=== PATIENT | male | born 1945 | race American Indian/Alaskan Native ===

== ENCOUNTER 2017-02-28 06:42 | Day surgery (SDC) | payer MEDICARE ==
[2017-02-22 08:25] VITALS: BMI 32.5
[2017-02-28] MEDS ORDERED: Midazolam 2 MG/2 ML VIAL ONE (08:25)
[2017-02-28] MEDS ORDERED: Propofol 10 mg/ml Inj (20 ML) ONE (08:26)
[2017-02-28] MEDS ORDERED: Lactated Ringer's 500 ML IV ONE (09:15)
[2017-02-28 09:50] VITALS: TEMP 97.3
[2017-02-28 10:01] VITALS: O2SAT 100
[2017-02-28 10:31] VITALS: BP 135/75; PULSE 80; RESP 15
== END 2017-02-28 10:39 | disposition home or self-care (01) ==
LOC: C.ENDO 06:42
PROVIDERS: ATTEND Internal Medicine Gastroenterology
DX: Z12.11 Encounter for screening for malignant neoplasm of colon (principal); K57.90 Diverticulosis of intestine, part unspecified, without perforation or abscess without bleeding; D12.5 Benign neoplasm of sigmoid colon; K43.2 Incisional hernia without obstruction or gangrene
CPT/HCPCS: 45385; 82948; 88305; J2250; J2704; J7120